=== PATIENT | female | born 1975 | race Two or more races ===

== ENCOUNTER → 2016-03-02 | Day surgery (SDC) | payer SELFPAY ==
[2016-03-02] VITALS (7 sets, daily range): BP systolic 97–121; BP diastolic 60–70
[~2016-03-02] VITALS: Ht 154.9 cm; Wt 68.0 kg
[~2016-03-02] MED LIST: D5 1/2NS 1,000 ML IV SCH; NKM; Propofol 10mg/ml 20ml IV ONE
--- NOTE | 2016-03-02 09:03 | Pre-Procedure Note/Attestation ---
Pre-Procedure Note/Attestation Complete Prior to Procedure Planned Procedure: not applicable Procedure Narrative: egd Indications for Procedure Pre-Operative Diagnosis: gerd Attestation I attest that I discussed the nature of the procedure; its benefits; risks and complications; and alternatives (and the risks and benefits of such alternatives ), prior to the procedure, with the patient (or the patient's legal sales representative meats). I attest that, if there was a reasonable possibility of needing a blood transfusion, the patient (or the patient's legal sales representative meats) was given the [facility] standardized written summary, pursuant to the Rell Selene Blood Safety Act ([place] Health and Safety Code # 1645, as amended). I attest that I re-evaluated the patient just prior to the surgery and that there has been no change in the patient's H&P, except as documented below: LIDIA LORENZANA Mar 02, 2016 09:03
--- NOTE | 2016-03-02 09:05 | Short Stay Surgery H&P ---
History of Present Illness History of Present Illness Chief Complaint gerd HPI Dao Holland is a 40 year old female who was admitted on for Abdominal Pain Patient History Allergies: Coded Allergies: NO KNOWN ALLERGIES (Verified Allergy, Unknown, 03/01/16) PAST MEDICAL HISTORY: (1) DM (diabetes mellitus) Past Surgeries: Social History: Medication History Scheduled No Known Medications* (NKM - No Known Medications*), 0 ., (Reported) Review of Systems Cardiovascular: Reports: no symptoms Respiratory: Reports: no symptoms Skeletal: Reports: no symptoms Gastrointestinal: Reports: gastro esophageal reflux disease Genitourinary: Reports: no symptoms Neurologic: Reports: no symptoms Endocrine: Reports: no symptoms Hematologic: Reports: no symptoms Physical Exam Vital Signs Last Vital Signs Date Time Temp Pulse Resp B/P Pulse Ox O2 Delivery O2 Flow Rate FiO2 03/02/16 08:40 97.1 71 20 114/70 100 Room Air Labs Laboratory Tests Test 03/02/16 08:20 Urine HCG, Qualitative Negative Skin: normal HENT: normal Heart: normal Lungs: normal Abdomen: normal Extremities: normal Plan Plan of Care egd Final Diagnosis: Attestation Are the patient's medical conditions optimized for surgery? Attestation Response: yes LIDIA LORENZANA Mar 02, 2016 09:05
--- NOTE | 2016-03-02 09:59 | Anethesia Preoperative Eval ---
Anesthesia Pre-op PMH/ROS General Date of Evaluation: Mar 02, 2016 Time of Evaluation: 09:57 Anesthesiologist: jyoti ASA Score: ASA 2 Mallampati Score Class I : Soft palate, uvula, fauces, pillars visible Class II: Soft palate, uvula, fauces visible Class III: Soft palate, base of uvula visible Class IV: Only hard plate visible Mallampati Classification: Class II Surgeon: karrie Diagnosis: GERD Surgical Procedure: egd Anesthesia History: none Allergies: Coded Allergies: NO KNOWN ALLERGIES (Verified Allergy, Unknown, 03/01/16) Past Medical History Gastrointestinal/Genitourinary: Reports: GERD - s/p tummy trishck, C/Section Anesthesia Pre-op Phys. Exam Physician Exam Last Vital Signs Date Time Temp Pulse Resp B/P Pulse Ox O2 Delivery O2 Flow Rate FiO2 03/02/16 08:40 97.1 71 20 114/70 100 Room Air Airway Exam Mallampati Score: Class II Teeth: intact Anesthesia Pre-op A/P Labs Urine Test Test 03/02/16 08:20 Urine HCG, Qualitative Negative Risk Assessment & Plan Plan: propofol Status Change Before Surgery: Leif Lugo MD Mar 02, 2016 09:59
--- NOTE | 2016-03-02 10:10 | Immediate Post-Op Evaluation ---
Immediate Post-Op Evalulation Immediate Post-Op Evalulation Date of Evaluation: Mar 02, 2016 Time of Evaluation: 10:28 IV Fluids: 300 Blood Pressure Systolic: 97 Blood Pressure Diastolic: 66 Pulse Rate: 77 Respiratory Rate: 27 O2 Sat by Pulse Oximetry: 97 Temperature (Fahrenheit): 97.1 Pain Score (1-10): 0 Nausea: No Vomiting: No Complications none Patient Status: awake, patent, none Hydration Status: adequate Leif Zhang MD Mar 02, 2016 10:10
--- NOTE | 2016-03-02 10:10 | 48 Hour Post Anesthesia Eval ---
Post Anesthesia Evaluation Date of Evaluation: Mar 02, 2016 Time of Evaluation: 11:00 Blood Pressure Systolic: 115 0: 64 Pulse Rate: 68 Respiratory Rate: 23 Temperature (Fahrenheit): 97.5 O2 Sat by Pulse Oximetry: 99 Airway: patent Nausea: No Vomiting: No Pain Intensity: 0 Hydration Status: adequate Cardiopulmonary Status: stable Mental Status/LOC: patient returned to baseline Follow-up Care/Observations: n/a Post-Anesthesia Complications: tolerated well Follow-up care needed: ready to discharge Leif Zhang MD Mar 02, 2016 10:10
--- NOTE | 2016-03-02 10:12 | Endoscopy Procedure Note ---
Endoscopy Procedure Note Indication for Procedure: gerd Procedures Performed: EGD Operative Findings/Diagnosis: gastritis Specimen: yes Pt Tolerated Procedure Well: Yes Estimated Blood Loss: none Anesthesiologist: jyoti Anesthesia: MAC Implant(s) used?: No 50 yrs or older w/o bx or poly: Not Applicable 10yrs. F/U not recommended: Not Applicable LIDIA LORENZANA Mar 02, 2016 10:12
--- NOTE | 2016-03-02 21:58 | Procedure Note ---
DATE OF PROCEDURE: 03/02/2016 SURGEON: Adriano Young M.D. PROCEDURE: Upper endoscopy with biopsy. ANESTHESIA: Per Dr. Zhang. INSTRUMENT: Olympus adult flexible upper endoscope. INDICATION: History of "sleeve gastrectomy with multiple symptoms." REASON FOR PROCEDURE: The procedure, risks, benefits, and possible consequences, including hemorrhage, aspiration, perforation and infection, and alternative treatments, were explained to the patient/legal guardian by Dr. Adriano Young and the patient/legal guardian understood and accepted these risks. PROCEDURE: After informed consent was obtained and the patient was adequately sedated, Olympus upper endoscope was advanced from mouth into the esophagus. GE junction was found to be about 37 cm from the incisors. There is no evidence of any esophagitis. Then, the scope was advanced into the stomach. 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 I am not exactly sure what kind of surgery she had on her stomach. She had the procedure done in [place] and she was told that she had a sleeve gastrectomy, but based on our endoscopic procedure it does not look like this is a sleeve gastrectomy, it looks like the patient has had a pouch made in the proximal stomach and it is widely open. The scope easily passed from the pouch into the second portion of the stomach and then antrum. There was some gastritis. Random biopsy from antrum was obtained. Retroflexion was performed in the stomach, which showed this unusual type of surgery. In the duodenum, there was minimal inflammation, but no active ulceration. SUMMARY OF FINDINGS: 1. 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 2. Gastritis, status post biopsy. 3. Mild duodenitis. RECOMMENDATIONS: Followup biopsy results and treat accordingly. Adriano Young M.D. DR: ANNE JOB#: [id number] CC:
== END | disposition home or self-care (01) ==
LOC: GAS 08:04
DX: K29.50 Unspecified chronic gastritis without bleeding (principal); K29.80 Duodenitis without bleeding; K21.9 Gastro-esophageal reflux disease without esophagitis; E11.9 Type 2 diabetes mellitus without complications; Z90.3 Acquired absence of stomach [part of]
CPT/HCPCS: 43239; 81025; 82962; J2704; 94003; 94150